=== PATIENT | female | born 1980 | race Caucasian/White ===

== ENCOUNTER → 2024-03-03 11:02 | Outpatient (REF) | payer BC, SELFPAY | LOC: WDC 11:02 | PROVIDERS: ATTENDING PHYSICIAN Nurse Practitioner Family | DX: Z12.31 Encounter for screening mammogram for malignant neoplasm of breast (principal) | CPT/HCPCS: 77063; 77067 ==

== ENCOUNTER → 2025-03-31 18:16 | Outpatient (REF) | payer BC, SELFPAY | LOC: WDC 18:16 | PROVIDERS: ATTENDING PHYSICIAN Nurse Practitioner Family | DX: Z12.31 Encounter for screening mammogram for malignant neoplasm of breast (principal) | CPT/HCPCS: 77063; 77067 ==

== ENCOUNTER → 2025-04-08 10:02 | Outpatient (REF) | payer BC, SELFPAY | LOC: WDC 10:02 | PROVIDERS: ATTENDING PHYSICIAN Nurse Practitioner Family | DX: R92.8 Other abnormal and inconclusive findings on diagnostic imaging of breast (principal) | CPT/HCPCS: 76642 ==